=== PATIENT | female | born 2000 | race Two or more races ===

== ENCOUNTER 2019-09-10 15:31 | Emergency (ER) | payer SELFPAY ==
[2019-09-10] MEDS ORDERED: NORMAL SALINE 1000 ML 1,000 ML IV ONE ×2 (16:07→19:16)
[2019-09-10] MEDS ORDERED: ACETAMINOPHEN 325 MG TABLET PO ONE (16:08)
--- NOTE | 2019-09-10 16:12 | ER Document Report ---
ED General - General Chief Complaint: Fever Stated Complaint: FEVER Time Seen by Provider: 09/10/19 15:52 Primary Care Provider: ZAY MOORE [NO LOCAL MD] - Follow up as needed Mode of Arrival: Ambulatory Information source: Patient Notes: This 19-year-old healthy female presents to the emergency department with complaints of fever and feeling shaky. She reports yesterday while she was at work she started feeling lightheaded and weak. She took Advil last night and some NyQuil. She woke up this morning was shaky she also took Advil this a.m. She discovered a fever of 102.9 at about 2:00 and took Advil at that time. She reports this past weekend she was having some pain with void and noticed hematuria so she took Azo. She denies symptoms at this time. She also mentions that she has some left-sided flank pain. Denies cough. Denies sore throat. Denies abdominal pain, vomiting and diarrhea but reports some nausea. Last bowel movement was yesterday. Denies COVID exposure. Denies cough, chest pain and shortness of breath reports she did travel out of [facility] to June to [facility] for 1 week. She lives with her grandmother. She reports her grandmother is healthy. TRAVEL OUTSIDE OF THE [place] 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 Lives with: Grandparent(s) - grandmother Family History: None Patient has suicidal ideation: No Patient has homicidal ideation: No - Medical History Medical History: Negative Surgical Hx: Negative - Immunizations Immunizations up to date: Yes Hx Diphtheria, Pertussis, Tetanus Vaccination: Yes Review of Systems - Review of Systems Notes: Review HPI for review of systems., All other systems negative Physical Exam - Vital signs Vitals: Temp Pulse Resp BP Pulse Ox 100.4 F 138 H 20 139/91 H 98 09/10/19 16:43 09/10/19 16:43 09/10/19 16:43 09/10/19 16:43 09/10/19 16:43 - Notes Notes: PHYSICAL EXAMINATION: GENERAL: Well-appearing and in no acute distress HEAD: Atraumatic, normocephalic. EYES: Pupils equal round and reactive to light, extraocular movements intact, sclera anicteric, conjunctiva are normal. ENT: nares patent, oropharynx clear without exudates. Moist mucous membranes. NECK: Normal range of motion, supple without lymphadenopathy LUNGS: CTAB and equal. No wheezes rales or rhonchi. HEART: Regular rate and rhythm without murmurs ABDOMEN: Soft, no tenderness. No guarding, no rebound BACK: Some Left CVA ttp EXTREMITIES: Normal range of motion, no pitting edema. No cyanosis. NEUROLOGICAL: Cranial nerves grossly intact. Normal sensory/motor exams. PSYCH: Normal mood, normal affect. SKIN: Warm, Dry, normal turgor, no visible rashes or lesions noted Course - Re-evaluation Re-evalutation: 09/10/19 17:09 19-year-old female presents emergency department with complaints of fever feeling shaky. She reports a temperature of 102.9 today at around 1400. She took Advil at that time. She denies recent covert exposure. Has not been out of state since June when she went to [facility]. She reports she lives a t her grandmothers who is healthy. Upon arrival her temperature was elevated with a heart rate of 140. Labs UA strep urine influenza and fluids ordered. Patient updated on plan of care verbalized understanding. 09/10/19 Slight leukocytosis influenza negative. Patient received 2 L of fluid Motrin. Vital signs stable. She is drinking p.o. fluids and has been treated with Rocephin for UTI and prescribed Macrobid. Urine culture pending. Patient reports she feels 100% better. Discharged home. Laboratory 09/10/19 09/10/19 09/10/19 16:45 16:45 16:45 WBC 13.3 H RBC 5.58 H Hgb 16.3 H Hct 46.3 MCV 83 MCH 29.2 MCHC 35.1 RDW 12.6 Plt Count 261 Lymph % (Auto) 12.5 L [place] % (Auto) 9.6 Eos % (Auto) 0.2 Baso % (Auto) 0.4 Absolute Neuts (auto) 10.2 H Absolute Lymphs (auto) 1.7 Absolute Monos (auto) 1.3 Absolute Eos (auto) 0.0 Absolute Basos (auto) 0.1 Seg Neutrophils % 77.3 Sodium 138.7 Potassium 4.1 Chloride 100 Carbon Dioxide 29 Anion Gap 10 BUN 12 Creatinine 0.63 Est GFR ( Amer) > 60 Est GFR (MDRD) Non-Af > 60 Glucose 101 Calcium 9.9 Total Bilirubin 2.3 H Direct Bilirubin 0.0 Neonat Total Bilirubin Not Reportable Neonat Direct Bilirubin Not Reportable Neonat Indirect Bili Not Reportable AST 26 ALT 33 Alkaline Phosphatase 74 Total Protein 8.5 H Albumin 4.9 Urine Color YELLOW Urine Appearance CLOUDY Urine pH 6.0 Ur Specific [place] 1.015 Urine Protein 30 H Urine Glucose (UA) NEGATIVE Urine Ketones NEGATIVE Urine Blood SMALL H Urine Nitrite NEGATIVE Urine Bilirubin NEGATIVE Urine Urobilinogen NEGATIVE Ur Leukocyte Esterase LARGE H Urine WBC (Auto) >182 Urine RBC (Auto) 7 Urine Bacteria (Auto) 3+ Urine WBC Clumps FEW Squamous Epi Cells Auto 1 Urine Mucus (Auto) OCC Urine Ascorbic Acid NEGATIVE Urine HCG, Qual NEGATIVE Influenza A (Rapid) Influenza B (Rapid) 09/10/19 16:45 WBC RBC Hgb Hct MCV MCH MCHC RDW Plt Count Lymph % (Auto) [place] % (Auto) Eos % (Auto) Baso % (Auto) Absolute Neuts (auto) Absolute Lymphs (auto) Absolute Monos (auto) Absolute Eos (auto) Absolute Basos (auto) Seg Neutrophils % Sodium Potassium Chloride Carbon Dioxide Anion Gap BUN Creatinine Est GFR ( Amer) Est GFR (MDRD) Non-Af Glucose Calcium Total Bilirubin Direct Bilirubin Neonat Total Bilirubin Neonat Direct Bilirubin Neonat Indirect Bili AST ALT Alkaline Phosphatase Total Protein Albumin Urine Color Urine Appearance Urine pH Ur Specific [place] Urine Protein Urine Glucose (UA) Urine Ketones Urine Blood Urine Nitrite Urine Bilirubin Urine Urobilinogen Ur Leukocyte Esterase Urine WBC (Auto) Urine RBC (Auto) Urine Bacteria (Auto) Urine WBC Clumps Squamous Epi Cells Auto Urine Mucus (Auto) Urine Ascorbic Acid Urine HCG, Qual Influenza A (Rapid) NEGATIVE Influenza B (Rapid) NEGATIVE - Vital Signs Vital signs: Temp Pulse Resp BP Pulse Ox 99.3 F 103 H 20 119/73 97 05/06/20 21:13 09/10/19 20:58 09/10/19 20:58 09/10/19 20:58 09/10/19 20:58 - Laboratory Result Diagrams: 09/10/19 16:45 09/10/19 16:45 Laboratory results interpreted by me: 09/10/19 09/10/19 09/10/19 16:45 16:45 16:45 WBC 13.3 H RBC 5.58 H Hgb 16.3 H Lymph % (Auto) 12.5 L Absolute Neuts (auto) 10.2 H Total Bilirubin 2.3 H Total Protein 8.5 H Urine Protein 30 H Urine Blood SMALL H Ur Leukocyte Esterase LARGE H Discharge - Discharge Clinical Impression: Fever Qualifiers: Fever type: unspecified Qualified Code(s): R50.9 - Fever, unspecified UTI (urinary tract infection) Qualifiers: Urinary tract infection type: site unspecified Hematuria presence: with hematuria Qualified Code(s): N39.0 - Urinary tract infection, site not specified Condition: Stable Disposition: HOME, SELF-CARE Instructions: Family Physicians / Practices, Fever (OM), IV Antibiotics (OM), Intravenous (IV) Fluids (OM), Nitrofurantoin (OM), Rocephin ([facility]), Urinary Tract Infection (OM) Additional Instructions: *You have been evaluated for fever, urinary tract infection *A urine culture is pending. You may be contacted in 3 to 4 days should we need to change her antibiotic *In the meantime monitor your temperature take Tylenol or Advil as indicated *Push fluids stay well-hydrated *Follow up with your primary care provider in 1 week *Return to emergency department for worsening fever, concerns, needs Monitor your blood pressure. Your blood pressure was elevated today. This may be because you were anxious, in pain or because you need medication. It is important to follow up with your primary care provider for full evaluation. Prescriptions: Nitrofurantoin Monohyd/M-Cryst [Macrobid 100 mg Capsule] 100 mg PO BID #20 cap Forms: Elevated Blood Pressure, Return to Work Referrals: LOCALMD,NO [NO LOCAL MD] - Follow up as needed
[2019-09-10 17:12] LABS: ABSOLUTE BASOPHILS # (AUTO) 0.1 10^3/uL (0.0-0.2); ABSOLUTE LYMPHOCYTES (AUTO) 1.7 10^3/uL (0.5-4.7); ABSOLUTE MONOCYTES (AUTO) 1.3 10^3/uL (0.1-1.4); ABSOLUTE NEUT (AUTO) 10.2 10^3/uL (1.7-8.2); BASOPHILS % (AUTO) 0.4 % (0-2); EOSINOPHILS % (AUTO) 0.2 % (0-6); HEMATOCRIT 46.3 % (36.0-47.0); HEMOGLOBIN 16.3 g/dL (12.0-15.5); LYMPHOCYTES % (AUTO) 12.5 % (13-45); MEAN CORPUSCULAR HEMOGLOBIN 29.2 pg (27.0-33.4); MEAN CORPUSCULAR HGB CONC 35.1 g/dL (32.0-36.0); MEAN CORPUSCULAR VOLUME 83 fl (80-97); MONOCYTES % (AUTO) 9.6 % (3-13); PLATELET COUNT 261 10^3/uL (150-450); RED BLOOD COUNT 5.58 10^6/uL (3.72-5.28); RED CELL DISTRIBUTION WIDTH 12.6 % (11.5-14.0); SEGMENTED NEUTROPHILS % (AUTO) 77.3 % (42-78); TOTAL CELLS COUNTED % (AUTO) 100 %; WHITE BLOOD COUNT 13.3 10^3/uL (4.0-10.5)
[2019-09-10 17:21] LABS: APPEARANCE,URINE CLOUDY; BILIRUBIN,URINE NEGATIVE (NEGATIVE); COLOR,URINE YELLOW; GLUCOSE, URINE NEGATIVE (NEGATIVE); KETONES,URINE NEGATIVE (NEGATIVE); LEUKOCYTE ESTERASE,URINE LARGE (NEGATIVE); NITRITE,URINE NEGATIVE (NEGATIVE); PROTEIN,URINE 30 mg/dL (NEGATIVE); URINE SPECIFIC GRAVITY 1.015; UROBILINOGEN,URINE NEGATIVE mg/dL (<2.0)
[2019-09-10 17:33] LABS: A TYPE INFLUENZA AG NEGATIVE (NEGATIVE); B INFLUENZA AG NEGATIVE (NEGATIVE)
[2019-09-10 17:37] LABS: ALBUMIN 4.9 g/dL (3.5-5.0); ALKALINE PHOSPHATASE 74 U/L (38-126); ANION GAP 10 (5-19); ASPARTATE AMINO TRANSFERASE 26 U/L (14-36); BILIRUBIN,TOTAL 2.3 mg/dL (0.2-1.3); BLOOD UREA NITROGEN 12 mg/dL (7-20); CALCIUM 9.9 mg/dL (8.4-10.2); CARBON DIOXIDE 29 mmol/L (22-30); CHLORIDE 100 mmol/L (98-107); GLUCOSE 101 mg/dL (75-110); POTASSIUM 4.1 mmol/L (3.6-5.0); TOTAL PROTEIN 8.5 g/dL (6.3-8.2)
[2019-09-10] MEDS ORDERED: CEFTRIAXONE 1 GM/D5W RTU 1 GM/50 ML RTUPB IV ONE (17:38)
[2019-09-10] MEDS ORDERED: IBUPROFEN 800 MG TABLET PO ONE (19:16)
[2019-09-10 21:14] VITALS: BP 119/73
== END 2019-09-10 21:20 | disposition home or self-care (01) ==
LOC: ER 15:31
DX: N39.0 Urinary tract infection, site not specified (principal); R31.0 Gross hematuria; R50.9 Fever, unspecified; R42 Dizziness and giddiness; R11.0 Nausea
CPT/HCPCS: 99283; 96361; 96365; 36415; 87086; 85025; 81025; 87088; 80053; 81001; 87804; J7030; J0696; 87186